=== PATIENT | female | born 1950 | race Hispanic/Latino ===

== ENCOUNTER 2018-02-01 16:33 | Emergency (ER) | payer MEDICARE, OTHER ==
[2018-02-01 16:33] VITALS: BMI 46.6
--- NOTE | 2018-02-01 16:44 | ED PDOC ---
HPI: Psych/Substance Abuse Time Seen by Provider: 02/01/18 16:43 Chief Complaint (Nursing): Psychiatric Evaluation Chief Complaint (Provider): crisis eval History Per: Patient, EMS Additional Complaint(s): 67-year-old female with history of schizoaffective disorder presents for crisis evaluation. Patient has been having visual and auditory hallucinations since yesterday and she also states she is having thoughts of wanting to harm herself. Patient is eating potato chips upon arrival and states that she slime with psychiatric problems with food. Patient is not sure of the medications that she takes daily. Past Medical History Reviewed: Historical Data, Nursing Documentation, Vital Signs Vital Signs: Last Vital Signs Temp 97.6 F 02/01/18 16:35 Pulse 88 02/01/18 16:35 Resp 18 02/01/18 16:35 BP 113/77 02/01/18 16:35 Pulse Ox 99 02/01/18 16:35 - Medical History PMH: Anxiety, Arthritis, Asthma, Bipolar Disorder, CHF, COPD, Depression, Diabetes, HTN, Osteoporosis, Schizophrenia, Sleep Apnea - Family History Family History: States: No Known Family Hx - Living Arrangements Living Arrangements: Retirement/Assist Lvng - Social History Current smoker - smoking cessation education provided: No Alcohol: Other (clean for 9 years as per patient) Drugs: Denies - Allergies Allergies/Adverse Reactions: Allergies Allergy/AdvReac Type Severity Reaction Status Date / Time Penicillins Allergy Mild RASH Verified 01/04/17 05:29 Review of Systems ROS Statement: Except As Marked, All Systems Reviewed And Found Negative Psych: Positive for: Psychosis (Auditory and visual hallucinations), Suicidal ideation Physical Exam - Reviewed Nursing Documentation Reviewed: Yes Vital Signs Reviewed: Yes - Physical Exam Appears: Positive for: Well, Non-toxic, No Acute Distress Skin: Negative for: Rash Eye Exam: Positive for: Normal appearance Cardiovascular/Chest: Positive for: Regular Rate, Rhythm Respiratory: Positive for: Normal Breath Sounds Gastrointestinal/Abdominal: Positive for: Other (Morbidly obese nontender abdomen) Neurologic/Psych: Positive for: Alert, Oriented, Mood/Affect (Acutely anxious and paranoid) - Laboratory Results Result Diagrams: 02/01/18 17:40 02/01/18 17:45 - ECG Interpretation Of ECG: NSR 75 bpm, no acute finding, reviewed by PA and ED attending O2 Sat by Pulse Oximetry: 99 Pulse Ox Interpretation: Normal - Other Rad CXR X-Ray: Interpreted by Me, Viewed By Me X-Ray Interpretation: cardiomegaly, no acute changes Medical Decision Making Medical Decision Makin-year-old female with auditory and visual hallucinations and suicidal ideation Plan: 1:1 bedside observation Crisis evaluation CBC CMP UDS BAL US EKG CXR 7:00 pm - Patient's daughter arrived at bedside, she is POA, she states she does not want patient to be admitted at this hospital and prefers transfer to [facility]. Crisis counselor states patient does meet criteria for admission and but admission will need to be reviewed by [facility] who will discuss case further with [facility]. Daughter aware of this process for transfers and agrees with plan. Disposition - Clinical Impression Clinical Impression: Schizoaffective disorder - Patient ED Disposition Is Patient to be Admitted: Transfer of Care - Disposition Disposition: Transfer of Care Disposition Time: 20:00 Condition: FAIR Forms: [facility] (Salvadorean) Patient Signed Over To: Cherrie Fernández Handoff Comments: Signed out pending diagnostic testing results and final disposition
--- NOTE | 2018-02-01 17:49 | RAD ---
HISTORY: clearance COMPARISON: 01/04/2017 FINDINGS: LUNGS: Pulmonary vascular congestion common no focal abnormalities. This finding was not seen previously. PLEURA: No significant pleural effusion identified, no pneumothorax apparent. CARDIOVASCULAR: Cardiomegaly/CHF. OSSEOUS STRUCTURES: No significant abnormalities. VISUALIZED UPPER ABDOMEN: Normal. OTHER FINDINGS: Questionable hiatal hernia. IMPRESSION: Cardiomegaly/ CHF.
[2018-02-01 17:52] LABS: BASO % 0.5 % (0.0-2.0); EOS # 0.2 K/uL (0.0-0.7); EOS % 3.7 % (0.0-4.0); HEMOGLOBIN 13.9 g/dL (12.0-16.0); LYMPH # 1.4 K/uL (1.0-4.3); LYMPH % 29.5 % (20.0-40.0); MEAN CELL VOLUME 87.4 fl (81.0-99.0); MEAN CORPUSCULAR HEMOGLOBIN 29.3 pg (27.0-31.0); MEAN CORPUSCULAR HGB CONC 33.5 g/dL (33.0-37.0); MEAN PLATELET VOLUME 9.1 fl (7.2-11.7); MONO # 0.5 K/uL (0.0-0.8); MONO % 10.8 % (0.0-10.0); NEUT # 2.7 K/uL (1.8-7.0); NEUT % 55.5 % (50.0-75.0); NRBC % 0.1 % (0.0-0.0); RBC 4.76 Mil/uL (3.80-5.20); RED CELL DISTRIBUTION WIDTH 14.3 % (11.5-14.5); WHITE BLOOD COUNT 4.9 K/uL (4.8-10.8)
[2018-02-01 18:42] LABS: ALB/GLOB RATIO 1.1 (1.0-2.1); ALBUMIN 4.1 g/dL (3.5-5.0); ALT/SGPT 26 U/L (9-52); AST/SGOT 25 U/L (14-36); BLOOD UREA NITROGEN 13 mg/dl (7-17); CALCIUM 9.5 mg/dL (8.4-10.2); GFR AFRICAN-AMERICAN > 60; GFR NON-AFRICAN AMERICAN > 60
[2018-02-01 20:03] LABS: URINE BACTERIA RARE (<OCC); URINE BILIRUBIN NEGATIVE (NEGATIVE); URINE BLOOD NEGATIVE (NEGATIVE); URINE CLARITY CLOUDY (Clear); URINE COLOR YELLOW (YELLOW); URINE GLUCOSE (UA) NEG (Normal); URINE LEUKOCYTE ESTERASE NEG Leu/uL (Negative); URINE PROTEIN NEGATIVE (NEGATIVE)
[2018-02-01 20:13] LABS: BARBITURATES, UR NEGATIVE (NEGATIVE); BENZODIAZEPINES, UR NEGATIVE (NEGATIVE); OPIATES, UR NEGATIVE (NEGATIVE); PHENCYCLIDINE, UR NEGATIVE (NEGATIVE)
--- NOTE | 2018-02-01 20:52 | ED PDOC ---
- Laboratory Results Result Diagrams: 02/01/18 17:40 02/01/18 17:45 - ECG O2 Sat by Pulse Oximetry: 99 - Progress ED Course And Treament: Case endorsed to engineering technical writer from [facility] pending repeat chest xray for psych transfer to [place] Chest xray shows cardiomegaly. Patient with history of CHF; denies chest pain, shortness of breath, lower extremity edema currently. Vitals stable. Patient medically stable for psychiatric transfer. As per crisis, patient will need am psych consult as part of transfer process. Disposition - Clinical Impression Clinical Impression: Schizoaffective disorder - POA Present On Arrival: None - Disposition Disposition: Transfer of Care Disposition Time: 06:00 Condition: STABLE Patient Signed Over To: Melissa Shaw Handoff Comments: pending psychiatric evaluation
--- NOTE | 2018-02-02 07:36 | ED PDOC ---
- Laboratory Results Result Diagrams: 02/01/18 17:40 02/01/18 17:45 - ECG O2 Sat by Pulse Oximetry: 96 (RA) Pulse Ox Interpretation: Normal - Progress ED Course And Treament: pt still awaiting beds no acute issues during my shift Re-evaluation Time: 16:13 Condition: Unchanged Medical Decision Making Medical Decision Making: Time: 0700 --Patient was endorsed to provider from Dr. Melissa Shaw. Pending psychiatric evaluation. Time: 1053 --Upon psych evaluation, patient will require inpatient admission for suicidal risk per Dr. Baez. Daughter (POA) is requesting tranfer to [facility] for admission. Scribe Attestation: Documented by Tessa Fuentes, acting as a scribe for Kaden Nayak MD. Provider Scribe Attestation: All medical record entries made by the Scribe were at my direction and personally dictated by me. I have reviewed the chart and agree that the record accurately reflects my personal performance of the history, physical exam, medical decision making, and the department course for this patient. I have also personally directed, reviewed, and agree with the discharge instructions and disposition. Disposition Counseled Patient/Family Regarding: Studies Performed, Diagnosis - Clinical Impression Clinical Impression: Schizoaffective disorder - POA Present On Arrival: None - Disposition Disposition: Transfer of Care Disposition Time: 16:13 Condition: STABLE Forms: [facility] (Guatemalan)
--- NOTE | 2018-02-02 08:31 | RAD ---
HISTORY: COMPARISON: 02/01/2018 TECHNIQUE: Chest PA and lateral FINDINGS: LINES AND TUBES: None. LUNG AND PLEURA: The lungs are well inflated. There is moderate pulmonary venous congestion. No focal consolidation. HEART AND MEDIASTINUM: There is persistent severe cardiomegaly. The hilar and mediastinal contours are within normal limits. SKELETAL STRUCTURES: The bony structures are within normal limits for the patient's age. VISUALIZED UPPER ABDOMEN: Normal. OTHER FINDINGS: None. IMPRESSION: Severe cardiomegaly and moderate pulmonary venous congestion. No focal consolidation.
--- NOTE | 2018-02-02 10:27 | CP.PCM.CON ---
History of Present Illness - History of Present Illness History of Present Illness: pt is 67 ys old female with previous psychiatric diagnosis of schizoaffective disorder, recently discharged from [facility], pt non compliant with medications or follow up, started to decompensate, as per her daughter, NAHUN pt has been experiencing poor sleep . increased anxiety and irritability, paranoid and disorganized, on day of evaluation she expressed suicidal ideations with plan to overdose on her medications, pt was brought to ER for evaluation on evaluation pt presenting with loud pressured disorganized speech, reported worried about her daughter who is a virgin and thinks her boy friend wants to take advantage of her, pt also presenting with delusions of persecution, stating her daughter wants to take her disability check and she has been firing the home health aids because they are not professional pt reported poor sleep ncreased anxiety and depression reported suicidal plan with the intent to overdose on her medications pt has one previous suicidal attempt by overdose Past Patient History - Infectious Disease Hx of Infectious Diseases: None - Tetanus Immunizations Tetanus Immunization: Unknown - Past Medical History & Family History Past Medical History?: Yes - Past Social History Alcohol: Other (clean for 9 years as per patient) Drugs: Denies - CARDIAC Hx Congestive Heart Failure: Yes Hx Hypertension: Yes - PULMONARY Hx Asthma: Yes Hx Chronic Obstructive Pulmonary Disease (COPD): Yes Hx Sleep Apnea: Yes - NEUROLOGICAL Hx Seizures: No - HEENT Hx HEENT Problems: No - RENAL Hx Chronic Kidney Disease: No - ENDOCRINE/METABOLIC Hx Endocrine Disorders: No - HEMATOLOGICAL/ONCOLOGICAL Hx Human Immunodeficiency Virus (HIV): No - INTEGUMENTARY Hx Dermatological Problems: No - MUSCULOSKELETAL/RHEUMATOLOGICAL Hx Arthritis: Yes Hx Osteoporosis: Yes - GASTROINTESTINAL Hx Gastrointestinal Disorders: No - GENITOURINARY/GYNECOLOGICAL Hx Sexually Transmitted Disorders: No - PSYCHIATRIC Hx Anxiety: Yes Hx Bipolar Disorder: Yes Hx Depression: Yes Hx Schizophrenia: Yes - SURGICAL HISTORY Hx Surgeries: Yes Hx Tubal Ligation: Yes - ANESTHESIA Hx Anesthesia: Yes Hx Anesthesia Reactions: No Meds Allergies/Adverse Reactions: Allergies Allergy/AdvReac Type Severity Reaction Status Date / Time Penicillins Allergy Mild RASH Verified 01/04/17 05:29 Physical Exam - Psychiatric Exam Additional comments: pt seen in bed, unkempt, speech loud and pressured, thought process loose and tangential, delusions of persecution, positive suicidal ideations with plan to overdose alert awake oriented to person , denied homicidal ideations, poor insight and judgment Results - Vital Signs Recent Vital Signs: Last Vital Signs Temp 98.8 F 02/02/18 06:19 Pulse 78 02/02/18 06:19 Resp 18 02/02/18 06:19 BP 107/68 02/02/18 06:19 Pulse Ox 96 02/02/18 07:45 - Labs Result Diagrams: 02/01/18 17:40 02/01/18 17:45 Labs: Laboratory Results - last 24 hr 02/01/18 02/01/18 02/01/18 17:40 17:45 19:29 WBC 4.9 RBC 4.76 Hgb 13.9 Hct 41.6 MCV 87.4 MCH 29.3 MCHC 33.5 RDW 14.3 Plt Count 142 MPV 9.1 Neut % (Auto) 55.5 Lymph % (Auto) 29.5 [place] % (Auto) 10.8 H Eos % (Auto) 3.7 Baso % (Auto) 0.5 Neut # (Auto) 2.7 Lymph # (Auto) 1.4 [place] # (Auto) 0.5 Eos # (Auto) 0.2 Baso # (Auto) 0.0 Sodium 145 Potassium 3.6 Chloride 102 Carbon Dioxide 23 Anion Gap 24 H BUN 13 Creatinine 0.5 L Est GFR ( Amer) > 60 Est GFR (Non-Af Amer) > 60 Random Glucose 116 H Calcium 9.5 Total Bilirubin 1.4 H AST 25 ALT 26 Alkaline Phosphatase 80 Total Protein 8.0 Albumin 4.1 Globulin 3.9 Albumin/Globulin Ratio 1.1 Urine Color Urine Clarity Urine pH Ur Specific [place]oit Urine Protein Urine Glucose (UA) Urine Ketones Urine Blood Urine Nitrate Urine Bilirubin Urine Urobilinogen Ur Leukocyte Esterase Urine RBC (Auto) Urine Microscopic WBC Urine Bacteria Urine Opiates Screen Negative Urine Methadone Screen Negative Ur Barbiturates Screen Negative Ur Phencyclidine Scrn Negative Ur Amphetamines Screen Negative U Benzodiazepines Scrn Negative U Oth Cocaine Metabols Negative U Cannabinoids Screen Negative Alcohol, Quantitative < 10 02/01/18 19:29 WBC RBC Hgb Hct MCV MCH MCHC RDW Plt Count MPV Neut % (Auto) Lymph % (Auto) [place] % (Auto) Eos % (Auto) Baso % (Auto) Neut # (Auto) Lymph # (Auto) [place] # (Auto) Eos # (Auto) Baso # (Auto) Sodium Potassium Chloride Carbon Dioxide Anion Gap BUN Creatinine Est GFR ( Amer) Est GFR (Non-Af Amer) Random Glucose Calcium Total Bilirubin AST ALT Alkaline Phosphatase Total Protein Albumin Globulin Albumin/Globulin Ratio Urine Color Yellow Urine Clarity Cloudy Urine pH 6.0 Ur Specific Deloit 1.020 Urine Protein Negative Urine Glucose (UA) Neg Urine Ketones 80 Urine Blood Negative Urine Nitrate Negative Urine Bilirubin Negative Urine Urobilinogen 4.0 H Ur Leukocyte Esterase Neg Urine RBC (Auto) 3 Urine Microscopic WBC < 1 Urine Bacteria Rare Urine Opiates Screen Urine Methadone Screen Ur Barbiturates Screen Ur Phencyclidine Scrn Ur Amphetamines Screen U Benzodiazepines Scrn U Oth Cocaine Metabols U Cannabinoids Screen Alcohol, Quantitative Assessment & Plan - Assessment and Plan (Free Text) Assessment: schizoaffective disorder bipoalr type Plan: pt at current mental status needs inpatient admission for suicide risk and needs medication stabilization daughter who is power of workers compensation defense attorney requesting admission to [facility] accordingly recommend transfer of pt for inpatient admission at [facility]
--- NOTE | 2018-02-02 11:44 | CARD ---
APPROVED REPORT EKG Measurement Heart [id number] <Conclusion> Normal sinus rhythm Cannot rule out Anterior infarct, age undetermined Abnormal ECG
--- NOTE | 2018-02-02 18:59 | ED PDOC ---
- Laboratory Results Result Diagrams: 02/01/18 17:40 02/01/18 17:45 - ECG ECG: Positive for: Interpreted By Me, Viewed By Me ECG Rhythm: Positive for: Normal QRS, Normal ST Segment, Sinus Rhythm O2 Sat by Pulse Oximetry: 97 - Progress ED Course And Treament: 1704: Took over care from Dr. Nayak. Pt. cleared medically by previous physician. Pt. in no respiratory distress. No leg swelling. No leg pain or tenderness. No cough or dyspnea. Lungs cta. Pt. pending possible voluntary psych bed at [facility]. If no bed there by the morning pt. to be considered for voluntary bed for psych at [facility]. Dr. Nunn and administrators had a phone conference with pt. daughter. She agrees with plan. Pt. to be [facility] screen and [facility] to be called if daughter to come and attempt AMA on pt. 1900: Pt. requesting medication by injection to make her calm. Will give 1mg ativan IM. 0: Stable. AAOx3. Resting comfortably. No respiratory issues. No dyspnea. No leg swelling. [id number]: Dr. Jones to take over care. Fu on crisis disposition. Disposition - Clinical Impression Clinical Impression: Schizoaffective disorder - POA Present On Arrival: None - Disposition Disposition: Transfer of Care Disposition Time: 23:36 Condition: STABLE
[2018-02-02 23:10] VITALS: O2SAT 97
--- NOTE | 2018-02-03 00:03 | ED PDOC ---
- Laboratory Results Result Diagrams: 02/01/18 17:40 02/01/18 17:45 - ECG O2 Sat by Pulse Oximetry: 97 (RA) Pulse Ox Interpretation: Normal Medical Decision Making Medical Decision Makin:00 Patient signed out to me pending bed at [facility] or [facility]. Upon reevaluation, patient is in no respiratory distress and resting comfortably in bed. Time; 02:01 --Patient is sleeping comfortably and in no distress. Time: 05:30 pt sleeping comfortably. no distress. stable vitals. --According to [employer] cafe worker, patient was accepted into [facility] for admission. However they will not assign a bed until the AM psychiatrist there at [facility]. speaks to our psychiatrist consulting services manager. signout to Dr Carballo 7 am. Scribe Attestation: Documented by Balbina Hooper, acting as a scribe for Magali Jones MD Provider Scribe Attestation: All medical record entries made by the Scribe were at my direction and personally dictated by me. I have reviewed the chart and agree that the record accurately reflects my personal performance of the history, physical exam, medical decision making, and the department course for this patient. I have also personally directed, reviewed, and agree with the discharge instructions and disposition. Disposition Counseled Patient/Family Regarding: Studies Performed, Diagnosis - Clinical Impression Clinical Impression: Schizoaffective disorder - POA Present On Arrival: None - Disposition Disposition: Transfer of Care Disposition Time: 07:00 Condition: STABLE Forms: [facility] (East Timorese) Patient Signed Over To: Jayshree Carballo
--- NOTE | 2018-02-03 08:58 | ED PDOC ---
- Laboratory Results Result Diagrams: 02/01/18 17:40 02/01/18 17:45 - ECG O2 Sat by Pulse Oximetry: 97 (RA) Medical Decision Making Medical Decision Making: received patient from Dr. Jones. Patient awaiting bed at [facility]. BEd is available now and patient is to be transferred to the service of Dr. Thai Holman. Disposition Doctor Will See Patient In The: Office Counseled Patient/Family Regarding: Diagnosis, Need For Followup - Clinical Impression Clinical Impression: Schizoaffective disorder - POA Present On Arrival: None - Disposition Disposition: Other Institution Disposition Time: 08:30 Condition: STABLE Forms: [employer] (Greenlandic)
[2018-02-03 09:15] VITALS: RESP 16
[2018-02-03 11:26] VITALS: BP 107/63; PULSE 73; TEMP 98
== END 2018-02-03 10:32 | disposition short-term general hospital (02) ==
LOC: H.ER 16:33
DX: F25.9 Schizoaffective disorder, unspecified (principal); Z00.8 Encounter for other general examination; E11.9 Type 2 diabetes mellitus without complications; Z86.59 Personal history of other mental and behavioral disorders; I11.0 Hypertensive heart disease with heart failure; I50.9 Heart failure, unspecified; J44.9 Chronic obstructive pulmonary disease, unspecified; M81.0 Age-related osteoporosis without current pathological fracture; Z88.0 Allergy status to penicillin; E66.01 Morbid (severe) obesity due to excess calories; R45.851 Suicidal ideations
CPT/HCPCS: 71045; 71046; 80053; 81003; 85025; 87086; 93005; 96372; 99285; G0480; J2060; Q0177